=== PATIENT | female | born 1995 | race Caucasian/White ===

== ENCOUNTER 2017-06-23 15:11 | Emergency (ER) | payer BC ==
[~2017-06-23] VITALS: Ht 167.6 cm; Wt 70.4 kg
[2017-06-23 15:13] VITALS: BP 125/86
== END 2017-06-23 15:45 | disposition left against medical advice (07) ==
LOC: EME 15:11
DX: S09.90XA Unspecified injury of head, initial encounter (principal); Z53.21 Procedure and treatment not carried out due to patient leaving prior to being seen by health care provider